=== PATIENT | male | born 1950 | race Caucasian/White ===

== ENCOUNTER 2017-03-05 10:08 | Emergency (ER) | payer MEDICARE ==
--- NOTE | 2017-03-05 12:23 | DIAGNOSTIC IMAGING REPORT ---
PROCEDURE: US ABDOMEN ULTRASOUND-LIMITED INDICATION: EPIGASTRIC ABDOMINAL PAIN TECHNIQUE: Leroy scale and color Doppler sonographic images of the abdomen were obtained without comparison. COMPARISON: None. FINDINGS: The liver is enlarged and demonstrates increased echogenicity. No mass or intrahepatic biliary dilatation. The gallbladder is without stones or sludge. There is a polyp that measures 3.7 mm. The wall is normal thickness measuring 2.1 mm No pericholecystic fluid or Leon sign. The extrahepatic common duct is normal measuring 3.3 mm The visualized pancreas is normal without ductal dilatation or peripancreatic fluid collection. The abdominal aorta is normal in its course and caliber. The retrohepatic inferior vena cava is patent. There is appropriate hepatopetal flow in the portal vein. The right kidney measures 11.9 cm in length. There is no perihepatic or perisplenic ascites. IMPRESSION: 1. Hepatomegaly, fatty liver.
--- NOTE | 2017-03-05 13:22 | DIAGNOSTIC IMAGING REPORT ---
PROCEDURE: CT ABDOMEN/PELVIS W/O CONTRAST INDICATION: Right-sided abdominal pain. TECHNIQUE: Noncontrast axial images were obtained of the entire abdomen and pelvis with sagittal and coronal reformations. COMPARISON: Abdominal ultrasound 03/05/2017. FINDINGS: ABDOMEN: Lung base are clear. Heart size is normal. Liver measures 21.9 cm in length. Gallbladder, pancreas, spleen and adrenal glands are normal. 5 cm left renal cyst. 2 mm mid left renal calcification. 3.5 mm right UVJ calculus with mild right hydroureteronephrosis. There is mild right perinephric and periureteral edema. Mild atherosclerosis of the aorta. PELVIS: Normal appendix. Mild diverticulosis. Enlarged prostate (5.1 cm). Calcified of pelvic lymph nodes. No free fluid. Mild degenerative changes of the spine. IMPRESSION: 1. 3.5 mm right UVJ calculus with mild right hydroureteronephrosis 2. Left renal cyst 3. 2 mm nonobstructing left renal calculus 4. Hepatomegaly 5. Results discussed with Dr. Cervantes All CT scans at this facility use dose modulation, iterative reconstruction, and/or weight-based dosing when appropriate to reduce radiation dose to as low as reasonably achievable.
--- NOTE | 2017-03-05 13:52 | ED NURSING NOTES ---
Clinical Report - Nurses [facility] [address] [place] [address] 03/05/2017 10:09 Patient: ANN ALEJANDRE TRIAGE Triage time 1017 PM. Acuity: LEVEL 3. Chief Complaint: ABDOMINAL PAIN and NAUSEA. Alert. No acute distress. SEPSIS SCREEN: Sepsis Screen. Negative (no infection suspected/documented). --10:34 Amy Haro R.N. 10:17 03/05/17. BP: 138/97 (regular adult cuff) taken on the left arm, via an automated monitor, while sitting. HR: 60. RR: 16. O2 saturation: 98% on room air. Temp: 98.4 F. Pain level now: 03/24. --10:34 Amy Haro R.N. Weight: 88.4 kg stated. Height/Length: 69 inches Per Patient. BMI: 28.8. --10:21 Amy Haro R.N. Medications Chlorothiazide Oral 500 mg, daily. FLUoxetine HCl Oral 30 mg , daily. Propranolol HCl Oral 60 mg, daily. --10:24 Amy Haro R.N. Aspirin Oral (Tablet Chewable 81 mg) 1 tablet. --10:24 Amy Haro R.N. Super B Complex/C Oral. --10:25 Amy Haro R.N. CoQ-10 Oral 100 mg , daily. --10:25 Amy Haro R.N. Fish Oil Oral (Capsule 1000 mg) 1 capsule. --10:26 Amy Haro R.N. Flax Seeds Oral. --10:26 Amy Haro R.N. Vitamin c Oral 1000 mg, daily. --10:26 Amy Haro R.N. Allergies No Known Drug Allergy. --10:24 Amy Haro R.N. Medication/allergy information source: the patient. --10:34 Amy Haro R.N. History Arrived by private vehicle. Historian: patient. Accompanied by family. Primary physician (Jose Figueroa). ( Pt states that after lifting a tub on Sunday started to have abdominal pain (does not believe it is related to the pain) on the right side which now has radiated to right flank area, constant, denies having diarrhea, vomiting or fevers. Does admit being nauseous at times. Does admit having burning sensation when he urinates.). This is a new problem. Symptoms are constant and still present (Sunday). He has had nausea and abdominal pain. No diarrhea, constipation or fever. 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 PAST MEDICAL HX: Immunizations: up-to-date. SOCIAL HX: Former smoker, end date 1996. No alcohol use or drug use. No recent travel. No infectious disease exposure. No known contact with a sick individual. ABUSE ASSESSMENT: No report of abuse. SELF HARM ASSESSMENT: A self harm assessment was performed. The patient answered "no" to the question "Do you have thoughts of harming or killing yourself?" and "Have you recently had thoughts about harming or killing others?". FALL RISK ASSESSMENT: Fall risk assessment completed. No fall risk identified. NUTRITIONAL RISK ASSESSMENT: The nutritional risk assessment revealed no deficiencies. FUNCTIONAL ASSESSMENT: Functional assessment: no impairments noted. LEARNING NEEDS ASSESSMENT: The learning needs assessment revealed no barriers. SKIN INTEGRITY ASSESSMENT: Skin integrity risk assessment completed. No skin integrity risk identified. --10:34 Amy Haro R.N. ( Pt does state that it is waking him up from sleep.). --10:35 Amy Haro R.N. PROBLEMS: H/A. Depression. Hypertension. --10:28 Amy Haro R.N. ADDITIONAL SURGERIES: Hernia Repair. Shoulder Surgery. --10:28 Amy Haro R.N. Interventions ID band on patient. --10:34 Amy Haro R.N. PHYSICAL ASSESSMENT Ambulatory to room. GENERAL / NEURO / PSYCH: Alert. Oriented X 4. HEENT: Mucous membranes are pink. RESPIRATORY: Respirations not labored. Breath sounds within normal limits. CVS: Capillary refill less than 2 seconds. GI / : The patient has had nausea. Abdomen soft and nontender. Bowel sounds within normal limits. No abdominal tenderness or distention, rebound tenderness or diarrhea. SKIN: Skin is warm and dry. --10:36 Amy Haro R.N. NURSING PROGRESS NOTES The initial plan of care for this patient has been created This plan of care was discussed with the patient. Patient gowned. Warming measures: blanket applied. Reassurance given. Two patient identifiers checked. Call light placed in reach. Side rails up. Bed placed in lowest position. Brakes of bed on. Patient ready for evaluation- chart flagged and ED physician notified. --10:35 Amy Haro R.N. EKG time: (1105). EKG was performed by a tech and shown to the ED physician. --11:06 Gabriela Alexander ER Tech1 10:57 03/05/2017 Site #1 started via IV in the left antecubital space with an 20g angiocath; one attempt. Blood drawn: rainbow set. Labeled in the presence of the patient and sent to the lab. --11:07 Amy Haro R.N. 11:07 03/05/2017 GI COCKTAIL WHITE (Simethicone) PO Oral Suspension 30 mL given. Allergies verified and confirmed 5 rights. --11:07 Amy Haro R.N. 11:07 03/05/2017 Started bag #1 1000 mL IV Fluids IV NS (Saline); at 1000 mL/hr over 1 hour(s) via site #1 via IV pump. Allergies verified and confirmed 5 rights. IV patency established. IV site checked: no pain, redness, or swelling. IV flushed thoroughly pre- and post-medication administration. --11:07 Amy Haro R.N. 12:03 03/05/2017 GI COCKTAIL WHITE PO Response: no adverse reaction. --12:13 Amy Haro R.N. 12:13 03/05/2017 IV Fluids IV NS Discontinued: bag #1 completed. Total amount infused: 1000 mL. IV patency established. IV site checked: no pain, redness, or swelling. IV flushed thoroughly. --12:13 Amy Haro R.N. 12:16 03/05/2017 Morphine IVP 4 mg given over 30 second(s) via site #1. Allergies verified, confirmed 5 rights and sedative warning given to the patient and patient's family. IV patency established. IV site checked: no pain, redness, or swelling. IV flushed thoroughly pre- and post-medication administration. IVP given by RN. --12:16 Amy Haro R.N. Pulse oximeter and NIBP monitor placed on patient. Reassurance given. Reassessment after fluids administered and medication administered. He has had no adverse reaction. ( US obtained, pt in pain, morphine given as ordered. Will monitor). GI / : The patient reports abdominal pain. Denies nausea, diarrhea or vomiting. SKIN: Skin color within normal limits. Two patient identifiers checked. Call light placed in reach. --12:19 Amy Haro R.N. 12:16 03/05/17. BP: 140/83 (regular adult cuff) taken on the left arm, via an automated monitor, while lying. HR: 57. RR: 18. O2 saturation: 100%. Temp: 98 F (oral). Pain level now: 8/10. --12:19 Amy Haro R.N. 12:37 03/05/2017 Dilaudid (HYDROmorphone HCl PF) IVP 1 mg given over 30 second(s) via site #1. Allergies verified, confirmed 5 rights and sedative warning given to the patient and patient's family. IV patency established. IV site checked: no pain, redness, or swelling. IV flushed thoroughly pre- and post-medication administration. IVP given by RN. --12:37 Amy Haro R.N. 12:37 03/05/2017 Morphine IVP Response: no adverse reaction symptoms are the same. The patient feels the same. --12:37 Amy Haro R.N. Reassurance given. Overall patient status is the same- he states feels better. ( Pt still "complaining of right flank pain" dilaudid given with good results pain levels at 3-4. NPO in place, waiting on CT results). GI / : The patient reports abdominal pain. Denies nausea, diarrhea or vomiting. Call light placed in reach. Side rails up. Patient waiting for CT results. --13:37 Amy Haro R.N. 13:35 03/05/17. BP: 128/79. HR: 54. RR: 16. O2 saturation: 95%. Pain level now: 12/22. --13:37 Amy Haro R.N. DISPOSITION / DISCHARGE 14:05 03/05/2017 Percocet (Oxycodone-Acetaminophen) PO 10/650 mg Tablets 2 tab given. Allergies verified, confirmed 5 rights and sedative warning given to the patient. --14:15 Amy Haro R.N. 14:08 03/05/2017 Site #1 removed upon discharge. Catheter intact. Manual pressure, pressure dressing, bandaid and bandage applied. --14:13 Amy Haro R.N. Departure time: 1410 PM. Condition at departure: improved and stable. The goals identified in the patient's plan of care were met. No learning barriers present. Discharge instructions provided and reviewed with the patient. Reviewed warnings (Stone passing instruction). Reviewed need for increased fluid intake. Patient and spouse verbalized understanding. Written instructions provided in [place]. No treatment instructions or referrals given to the patient. The patient was discharged by the physician. He was discharged home and accompanied by spouse. He left the Emergency Department ambulatory and via private vehicle. Spouse driving. FALL RISK ASSESSMENT: Fall risk assessment completed. No fall risk identified. --14:15 Amy Haro R.N. 14:00 03/05/17. BP: 125/58. HR: 78. RR: 15. O2 saturation: 100% on room air. Temp: 98.3 F (oral). Pain level now: 05/24. --14:15 Amy Haro R.N. Locked/Released at 03/05/2017 14:15 by Amy Haro R.N.
--- NOTE | 2017-03-05 13:52 | ED ORDER SUMMARY ---
..... Patient: ANN ALEJANDRE OrderSheet [facility] VisitID: [id number] [address] [place] [address] 66y, M Registration Date/Time: 03/05/2017 ORDER SHEET Weight: 88.4 kg (stated) Allergies: No Known Drug Allergy GENERAL ORDERS: US Abdomen Limited (No) Urgent (10:56 03/05/2017 Len Cardona) (Ack 10:58 LMuller) (12:13 EHassan R.N.) CBC w Diff Urgent (10:56 03/05/2017 Len Cardona) (Ack 10:58 LMuller) (10:59 LMuller) CMP Urgent (10:56 03/05/2017 Len Cardona) (Ack 10:58 LMuller) (10:59 LMuller) UA-Culture if indicated Urgent (10:56 03/05/2017 Len Cardona) (Ack 10:58 LMuller) (12:13 EHassan R.N.) PT with INR Urgent (10:56 03/05/2017 Len Cardona) (Ack 10:58 LMuller) (10:59 LMuller) Lipase Urgent (10:56 03/05/2017 Len Cardona) (Ack 10:58 LMuller) (10:59 LMuller) Troponin-I Urgent (10:56 03/05/2017 Len Cardona) (Ack 10:58 LMuller) (10:59 LMuller) EKG - ER Stat (10:56 03/05/2017 Len Cardona) (Ack 10:58 LMuller) (11:06 ALawrence ER Tech1) Pulse oximeter (10:56 03/05/2017 Len Cardona) (Ack 10:58 LMuller) (11:06 EHassan R.N.) CT Abd/Pel w Cont (No) (gfr borderline. okay for non-con if needed. ) Urgent (12:38 03/05/2017 Len Cardona) (Ack 12:40 LMuller) (Cancelled: Duplicate Order12:[address] CT Abd/Pel wo Cont Urgent (12:54 03/05/2017 Len Cardona) (Ack 12:57 LMuller) (13:03 LMuller) MEDICATION ORDERS: GI Cocktail WHITE PO 30 mL (NOW) (10:57 03/05/2017 Len Cardona) (11:07 EHassaforrest R.N.) Percocet PO 10/650 mg (HIGH ALERT MEDICATION, NOW) (14:06 03/05/2017 Len Cardona) (14:15 EHassaforrest R.N.) IV FLUIDS: IV NS : initial bolus none -, then 1000 mL/hr for X1 (NOW) (11:01 03/05/2017 Baltazar R.N. verbal order read back to Len Cardona) (11:07 EHassaforrest R.N.) Morphine IV 4 mg (HIGH ALERT MEDICATION, NOW) (12:12 03/05/2017 Len Cardona) (12:16 EHassaforrest R.N.) Dilaudid IV 1 mg (HIGH ALERT MEDICATION, NOW) (12:33 03/05/2017 Len Cardona) (12:37 EHassan R.N.) ORDER SHEET NOTES: [Electronically signed by Amy Haro R.N. (14:15 03/05/2017)] [Electronically signed by Bradly Cervantes Dr. (05:26 03/10/2017)] [Electronically locked/signed by Amy Haro R.N. (14:15 03/05/2017)]
--- NOTE | 2017-03-05 13:52 | ED ORDER SUMMARY ---
..... Patient: ANN ALEJANDRE OrderSheet [facility] VisitID: [id number] [address] [place] [address] 66y, M Registration Date/Time: 03/05/2017 ORDER SHEET Weight: 88.4 kg (stated) Allergies: No Known Drug Allergy GENERAL ORDERS: US Abdomen Limited (No) Urgent (10:56 03/05/2017 eLn Cardona) (Ack 10:58 LMuller) (12:13 EHassan R.N.) CBC w Diff Urgent (10:56 03/05/2017 Len Cardona) (Ack 10:58 LMuller) (10:59 LMuller) CMP Urgent (10:56 03/05/2017 Len Cardona) (Ack 10:58 LMuller) (10:59 LMuller) UA-Culture if indicated Urgent (10:56 03/05/2017 Len Cardona) (Ack 10:58 LMuller) (12:13 EHassan R.N.) PT with INR Urgent (10:56 03/05/2017 Len Cardona) (Ack 10:58 LMuller) (10:59 LMuller) Lipase Urgent (10:56 03/05/2017 Len Cardona) (Ack 10:58 LMuller) (10:59 LMuller) Troponin-I Urgent (10:56 03/05/2017 Len Cardona) (Ack 10:58 LMuller) (10:59 LMuller) EKG - ER Stat (10:56 03/05/2017 Len Cardona) (Ack 10:58 LMuller) (11:06 ALawrence ER Tech1) Pulse oximeter (10:56 03/05/2017 Len Cardona) (Ack 10:58 LMuller) (11:06 EHassan R.N.) CT Abd/Pel w Cont (No) (gfr borderline. okay for non-con if needed. ) Urgent (12:38 03/05/2017 Len Cardona) (Ack 12:40 LMuller) (Cancelled: Duplicate Order12:[address] CT Abd/Pel wo Cont Urgent (12:54 03/05/2017 Len Cardona) (Ack 12:57 LMuller) (13:03 LMuller) MEDICATION ORDERS: GI Cocktail WHITE PO 30 mL (NOW) (10:57 03/05/2017 Len Cardona) (11:07 EHassaforrest R.N.) Percocet PO 10/650 mg (HIGH ALERT MEDICATION, NOW) (14:06 03/05/2017 Len Cardona) (14:15 EHassaforrest R.N.) IV FLUIDS: IV NS : initial bolus none -, then 1000 mL/hr for X1 (NOW) (11:01 03/05/2017 Baltazar R.N. verbal order read back to Len Cardona) (11:07 EHassaforrest R.N.) Morphine IV 4 mg (HIGH ALERT MEDICATION, NOW) (12:12 03/05/2017 Len Cardona) (12:16 EHassaforrest R.N.) Dilaudid IV 1 mg (HIGH ALERT MEDICATION, NOW) (12:33 03/05/2017 Len Cardona) (12:37 EHassan R.N.) ORDER SHEET NOTES: [Electronically signed by Amy Haro R.N. (14:15 03/05/2017)] [Electronically signed by Bradly Cervantes Dr. (05:26 03/10/2017)] [Electronically locked/signed by Amy Haro R.N. (14:15 03/05/2017)]
--- NOTE | 2017-03-05 13:52 | ED CLINICAL REPORT ---
Clinical Report - Physicians/Mid Levels [facility] [address] [place] [address] 03/05/2017 10:09 Patient: ANN ALEJANDRE Time Seen: 1040. Arrived- By private vehicle. Historian- patient. HISTORY OF PRESENT ILLNESS Chief Complaint: ABDOMINAL PAIN. This started past 2 - 3 days and is still present and worsening. It was abrupt in onset and has been intermittent and waxing/waning but is not gone now. At its maximum, severity described as moderate. When seen in the E.D., severity described as moderate. It is described as "pain". No radiation. It is described as located in the right upper quadrant. No nausea, loss of appetite, vomiting or diarrhea. No additional abdominal pain. No recent travel. Similar symptoms previously: None. Recent medical care: Not recently seen/assessed. REVIEW OF SYSTEMS No black stools, hematemesis, bloody stools or fever. All systems otherwise negative, except as recorded above. PAST HISTORY See nurses notes. SOCIAL HISTORY Never smoker. No alcohol use or drug use. No recent travel. Is a local resident. FAMILY HISTORY No family history of gall bladder problems. ADDITIONAL NOTES The nursing notes have been reviewed. PHYSICAL EXAM Vital Signs: 03/05/2017 10:17 BP: 138/97. HR: 60. RR: 16. O2 saturation: 98%. Temp: 98.4 F. Pain level now: 6/10. Blood pressure normal. Oxygen saturation normal. Appearance: Alert. Oriented X3. No acute distress. Eyes: Pupils equal, round and reactive to light. Eyes normal inspection. ENT: Ears normal. Nose normal. Pharynx normal. Neck: Normal inspection. Neck supple. CVS: Normal heart rate and rhythm. Heart sounds normal. Pulses normal. Respiratory: No respiratory distress. Breath sounds normal. Chest nontender. Abdomen: Soft. Bowel sounds normal. (Mild right upper quadrant tenderness. Negative Leon's. No tenderness at McBurney's. No rebound or guarding. No masses). Back: No CVA tenderness. Skin: Skin warm and dry. Normal skin color. No rash. Normal skin turgor. Extremities: Extremities exhibit normal ROM. No lower extremity edema. LABS, X-RAYS, AND EKG Abdominal CT: PROCEDURE: CT ABDOMEN/PELVIS W/O CONTRAST INDICATION: Right-sided abdominal pain. TECHNIQUE: Noncontrast axial images were obtained of the entire abdomen and pelvis with sagittal and coronal reformations. COMPARISON: Abdominal ultrasound 03/05/2017. FINDINGS: ABDOMEN: Lung base are clear. Heart size is normal. Liver measures 21.9 cm in length. Gallbladder, pancreas, spleen and adrenal glands are normal. 5 cm left renal cyst. 2 mm mid left renal calcification. 3.5 mm right UVJ calculus with mild right hydroureteronephrosis. There is mild right perinephric and periureteral edema. Mild atherosclerosis of the aorta. PELVIS: Normal appendix. Mild diverticulosis. Enlarged prostate (5.1 cm). Calcified of pelvic lymph nodes. No free fluid. Mild degenerative changes of the spine. IMPRESSION: 1. 3.5 mm right UVJ calculus with mild right hydroureteronephrosis 2. Left renal cyst 3. 2 mm nonobstructing left renal calculus 4. Hepatomegaly. Study type: abdomen and pelvis. Abdominal CT performed without contrast. The study was independently viewed by me and interpreted by the radiologist. The study was discussed with the radiologist (via phone and pacs). Abdominal Sonogram: (PROCEDURE: US ABDOMEN ULTRASOUND-LIMITED INDICATION: EPIGASTRIC ABDOMINAL PAIN TECHNIQUE: Leroy scale and color Doppler sonographic images of the abdomen were obtained without comparison. COMPARISON: None. FINDINGS: The liver is enlarged and demonstrates increased echogenicity. No mass or intrahepatic biliary dilatation. The gallbladder is without stones or sludge. There is a polyp that measures 3.7 mm. The wall is normal thickness measuring 2.1 mm No pericholecystic fluid or Leon sign. The extrahepatic common duct is normal measuring 3.3 mm The visualized pancreas is normal without ductal dilatation or peripancreatic fluid collection. The abdominal aorta is normal in its course and caliber. The retrohepatic inferior vena cava is patent. There is appropriate hepatopetal flow in the portal vein. The right kidney measures 11.9 cm in length. There is no perihepatic or perisplenic ascites. IMPRESSION: 1. Hepatomegaly, fatty liver.). The study was independently viewed by me and interpreted by the radiologist. The study was discussed with the radiologist (via pacs). Laboratory Tests: CBC w Diff: (KEVIN: 03/05/2017 10:40) ( [facility] 03/05/2017 11:11) Final results Test Result Flag Units (Reference) WHITE BLOOD COUNT 15.2 H K/uL (4.5-11.5) RED BLOOD COUNT 4.15 L M/uL (4.50-5.90) HEMOGLOBIN 12.9 L gm/dL (13.5-17.5) HEMATOCRIT 37.8 L % (41.0-53.0) MEAN CELL VOLUME 91 fL (80-100) MEAN CORPUSCULAR HGB 31 pg (26-34) MEAN CORPUSCULAR HGB CONC 34 g/dL (31-37) RED CELL DISTRIBUTION WIDTH 13.5 % (11.6-14.8) PLATELET COUNT 146 L K/uL (150-400) NEUTROPHIL % 80.1 H % (50-75) LYMPH % 10.9 L % (25-40) MONO % 8.2 % (3-14) EOSINOPHIL % 0.6 % (0-4) BASOPHIL % 0.2 % (0-2) PT with INR: (KEVIN: 03/05/2017 10:40) ( [facility] 03/05/2017 11:14) Final results Test Result Flag Units (Reference) INR 1.1 (0.8-1.2) Low Intensity Therapy: INR 1.5-2.0 PT range 18.5-23.1Mod.Intensity Therapy: INR 2.0-3.0 PT range 23.1-31.5High Intensity Therapy: INR 2.5-3.5 PT range 27.4-35.5High Intensity Therapy 2: INR 3.0-4.0 PT range 31.5-39.3 CMP: (KEVIN: 03/05/2017 10:40) ( [facility] 03/05/2017 11:40) Final results Test Result Flag Units (Reference) GLUCOSE 186 H mg/dL (70-110) BUN 33 H mg/dL (7-18) CREATININE 2.0 H mg/dL (0.6-1.3) Estimated GFR 35.71 mL/min Estimated GFR- 43.28 mL/min Note: Persistent reduction over 3 months in eGFR<60 mL/min/1.73 m2 defines CKD. Patients with eGFR values>=60 mL/min/1.73 m2 may also have CKD if evidence ofpersistent proteinuria. Additional information may be foundat [email or web address].org. SODIUM 137 mmol/L (136-145) POTASSIUM 3.0 L mmol/L (3.5-5.1) CHLORIDE 102 mmol/L (98-107) CARBON DIOXIDE 26 mmol/L (21-32) CALCIUM 8.7 mg/dL (8.5-10.1) TOTAL PROTEIN 6.9 g/dL (6.4-8.2) ALBUMIN 3.6 g/dL (3.3-5.0) BILIRUBIN, TOTAL 0.7 mg/dL (0.0-1.0) ALKALINE PHOSPHATASE 50 U/L (46-116) AST (SGOT) 24 U/L (15-37) ALT (SGPT) 38 U/L (12-78) LIPASE 120 U/L (73-393) TROPONIN I <0.05 L ng/mL (0.00-1.5) TROPONIN REFERENCE RANGE:<0.1 NEGATIVE0.1-1.5 INDETERMINANT>1.5 POSITIVE . PROGRESS AND PROCEDURES Course of Care: The patient is a pleasant 66-year-old male presented for a vaginal right upper quadrant abdominal pain. At this time differential diagnosis includes biliary colic versus peritonitis versus hepatitis versus gastritis. Patient will be evaluated with ultrasound of the right upper quadrant as well as laboratory studies. Patient is agreeable to the treatment plan. Pain medication has been offered. Patient's workup was remarkable for the findings above. White blood cell count is noted to be 15.2. Patient's ultrasound shows a polyp in the gallbladder however patient has not any stones. During patient's evaluation, his pain had worsened. Because of the worsening pain had discussion with the patient in regards to a CT scan of the abdomen and pelvis. Patient is agreeable to the treatment plan with a CT scan. Patient could have a renal calculi or bowel obstruction given the change in pain. CT scan shows patient to have a kidney stone. This is likely the cause for the patient's pain. Patient otherwise does not have a surgical abdomen. Patient with elevation in creatinine. Unable to provide patient with Toradol because of the patient's elevated creatinine. because of the patient's findings in the emergency department, patient will be referred to urology for further management and follow-up. Pain has been controlled while here in the emergency department. Patient had requested one more dose of pain medication prior to departure from the emergency department. This has been provided. Had a discussion the patient in regards to his workup here in the emergency department including diagnosis, home care, follow-up, and return precautions. All questions have been answered. The patient expressed understanding of these instructions and was agreeable to them. Disposition: Discharged. Condition: good. CLINICAL IMPRESSION Acute right upper quadrant abdominal pain of unknown cause. 03/05/2017 13:35 BP: 128/79. HR: 54. RR: 16. O2 saturation: 95%. Pain level now: 3/10. Blood pressure normal. Oxygen saturation normal. Right renal colic in the right ureter with a single calculus. incidental gallbladder polyp acute kidney injury. INSTRUCTIONS Warnings: GENERAL WARNINGS: Return or contact your physician immediately if your condition worsens or changes unexpectedly, if not improving as expected, or if other problems arise. SPECIFICALLY, return if you develop pain, fever, vomiting, the inability to keep fluids down, blood in vomitus, blood in diarrhea, fainting or lightheadedness. Your Current Medications: CONTINUE TAKING THE FOLLOWING MEDICATIONS: Aspirin Oral : Tablet Chewable 81 mg, 1 tablet. CoQ-10 Oral : 100 mg daily. Fish Oil Oral : Capsule 1000 mg, 1 capsule. Flax Seeds Oral. FLUoxetine HCl Oral : 30 mg daily. Propranolol HCl Oral : 60 mg daily. Super B Complex/C Oral. Vitamin c Oral : 1000 mg daily. CONTINUE TAKING THE FOLLOWING MEDICATIONS UNTIL YOU CHECK WITH YOUR PHYSICIAN: Chlorothiazide Oral : 500 mg daily. Prescription Medications: Zofran (orally disintegrating tablets) 4 mg: take 1 orally every 8 hours as needed for nausea and vomiting. Dispense ten (10). No refill. Substitution is permissible. Percocet 5 mg/325 mg: take 1-2 tablets orally every 6 hours as needed for pain. Dispense twenty-five (25). No refill. Substitution is permissible. Follow-up: Return to the emergency department as needed. Follow up with a surgeon in three days. Reason for referral: recheck gallbladder polyp found on ultrasound. Summary of care provided to patient via paper. Follow up with your doctor in three days. Reason for referral: recheck today's concerns. Summary of care provided to patient via paper. Screening today revealed the patient's blood pressure to be in the normal range. The patient should follow up with a primary care provider for blood pressure management. Understanding of the discharge instructions verbalized by patient. Follow-up with: Rubén Segal MD, Urology, , [address] [facility] , [facility], [address] Follow up in one day. Reason for referral: recheck today's concerns. Summary of care provided to patient via paper. (Electronically signed by Bradly Cervantes Dr. 03/10/2017 5:26)
--- NOTE | 2017-03-10 05:26 | ED MAR SUMMARY ---
..... Medication Administration Record [facility] [address] [place] [address] Patient: ANN ALEJANDRE Visit ID: [id number] 66y, M Weight: 88.4 kg Height/Length: 69 in BMI: 28.8 ALLERGIES: No Known Drug Allergy Given 11:07 03/05/2017 Amy Haro R.N. Medication Administered: GI COCKTAIL WHITE [PO] (SIMETHICONE), Dose: 30 mL Oral Suspension PO. Medication Ordered: GI Cocktail WHITE PO 30 mL (NOW). Start 11:07 03/05/2017 Amy Haro R.N., Stop 12:13 03/05/2017 Amy Haro R.N. Medication Administered: IV NS (SALINE), Dose: IV Fluids over 1 hour(s), Rate: 1000 mL/hr, Dispensed: 1000 mL bag, Site: #1 left AC. Medication Ordered: IV NS : initial bolus none -, then 1000 mL/hr for X1 (NOW). Given 12:16 03/05/2017 Amy Haro R.N. Medication Administered: MORPHINE [IVP], Dose: 4 mg IVP over 30 second(s), Site: #1 left AC. Medication Ordered: Morphine IV 4 mg (HIGH ALERT MEDICATION, NOW). Given 12:37 03/05/2017 Amy Haro R.N. Medication Administered: DILAUDID [IVP] (HYDROMORPHONE HCL PF), Dose: 1 mg IVP over 30 second(s), Site: #1 left AC. Medication Ordered: Dilaudid IV 1 mg (HIGH ALERT MEDICATION, NOW). Given 14:05 03/05/2017 Amy Haro R.N. Medication Administered: PERCOCET [PO] (OXYCODONE-ACETAMINOPHEN), Dose: 2 tab 10/650 mg Tablets PO. Medication Ordered: Percocet PO 10/650 mg (HIGH ALERT MEDICATION, NOW).
--- NOTE | 2017-03-10 05:26 | ED MED RECONCILIATION SUMMARY ---
Patient: ANN ALEJANDRE Medication Reconciliation Report [facility] VisitID: [id number] [address] [place] [address] 66y, M Registration Date/Time: 03/05/2017 Weight: 88.4 kg Height/Length: 69 in. BMI: 28.8 ALLERGIES: No Known Drug Allergy The patient's Home Medications are listed below: CONTINUE TAKING THE FOLLOWING MEDICATIONS: Aspirin Oral (81 mg) 1 tablet CoQ-10 Oral 100 mg , daily Fish Oil Oral (1000 mg) 1 capsule Flax Seeds Oral FLUoxetine HCl Oral 30 mg , daily Propranolol HCl Oral 60 mg, daily Super B Complex/C Oral Vitamin c Oral 1000 mg, daily CONTINUE TAKING THE FOLLOWING MEDICATIONS UNTIL YOU CHECK WITH YOUR PHYSICIAN: Chlorothiazide Oral 500 mg, daily The source(s) of the original Home Medication information: patient The following Medications were given to the patient in the Emergency Department: GI COCKTAIL WHITE [PO] PO 30 mL, administered: 03/05/2017 11:07:00 AM IV NS IV Fluids bolus 0, then 1000 mL/hr, administered: 03/05/2017 11:07:00 AM Morphine [IVP] IVP 4 mg, administered: 03/05/2017 12:16:00 PM Dilaudid [IVP] IVP 1 mg, administered: 03/05/2017 12:37:00 PM Percocet [PO] PO 2 tab, administered: 03/05/2017 2:05:00 PM The following Medications were prescribed to the patient: Zofran (orally disintegrating tablets) 4 mg: take 1 orally every 8 hours as needed for nausea and vomiting. Dispense ten (10). No refill. Substitution is permissible. -- Bradly Cervantes Dr. Percocet 5 mg/325 mg: take 1-2 tablets orally every 6 hours as needed for pain. Dispense twenty-five (25). No refill. Substitution is permissible. -- Bradly Cervantes Dr.
--- NOTE | 2017-03-10 05:26 | ED MED RECONCILIATION SUMMARY ---
Patient: ANN ALEJANDRE Medication Reconciliation Report [facility] VisitID: [id number] [address] [place] [address] 66y, M Registration Date/Time: 03/05/2017 Weight: 88.4 kg Height/Length: 69 in. BMI: 28.8 ALLERGIES: No Known Drug Allergy The patient's Home Medications are listed below: CONTINUE TAKING THE FOLLOWING MEDICATIONS: Aspirin Oral (81 mg) 1 tablet CoQ-10 Oral 100 mg , daily Fish Oil Oral (1000 mg) 1 capsule Flax Seeds Oral FLUoxetine HCl Oral 30 mg , daily Propranolol HCl Oral 60 mg, daily Super B Complex/C Oral Vitamin c Oral 1000 mg, daily CONTINUE TAKING THE FOLLOWING MEDICATIONS UNTIL YOU CHECK WITH YOUR PHYSICIAN: Chlorothiazide Oral 500 mg, daily The source(s) of the original Home Medication information: patient The following Medications were given to the patient in the Emergency Department: GI COCKTAIL WHITE [PO] PO 30 mL, administered: 03/05/2017 11:07:00 AM IV NS IV Fluids bolus 0, then 1000 mL/hr, administered: 03/05/2017 11:07:00 AM Morphine [IVP] IVP 4 mg, administered: 03/05/2017 12:16:00 PM Dilaudid [IVP] IVP 1 mg, administered: 03/05/2017 12:37:00 PM Percocet [PO] PO 2 tab, administered: 03/05/2017 2:05:00 PM The following Medications were prescribed to the patient: Zofran (orally disintegrating tablets) 4 mg: take 1 orally every 8 hours as needed for nausea and vomiting. Dispense ten (10). No refill. Substitution is permissible. -- Bradly Cervantes Dr. Percocet 5 mg/325 mg: take 1-2 tablets orally every 6 hours as needed for pain. Dispense twenty-five (25). No refill. Substitution is permissible. -- Bradly Cervantes Dr.
--- NOTE | 2017-03-10 05:26 | ED DISCHARGE INSTRUCTIONS ---
Patient: ANN ALEJANDRE General Instructions [facility] VisitID: [id number] [address] [place] [address] 66y, M Registration Date/Time: 03/05/2017 Acute right upper quadrant abdominal pain of unknown cause. 03/05/2017 13:35 BP: 128/79. HR: 54. RR: 16. O2 saturation: 95%. Pain level now: 3/10. Blood pressure normal. Oxygen saturation normal. Right renal colic in the right ureter with a single calculus. incidental gallbladder polyp acute kidney injury. INSTRUCTIONS Warnings: GENERAL WARNINGS: Return or contact your physician immediately if your condition worsens or changes unexpectedly, if not improving as expected, or if other problems arise. SPECIFICALLY, return if you develop pain, fever, vomiting, the inability to keep fluids down, blood in vomitus, blood in diarrhea, fainting or lightheadedness. Your Current Medications: CONTINUE TAKING THE FOLLOWING MEDICATIONS: Aspirin Oral : Tablet Chewable 81 mg, 1 tablet. CoQ-10 Oral : 100 mg daily. Fish Oil Oral : Capsule 1000 mg, 1 capsule. Flax Seeds Oral. FLUoxetine HCl Oral : 30 mg daily. Propranolol HCl Oral : 60 mg daily. Super B Complex/C Oral. Vitamin c Oral : 1000 mg daily. CONTINUE TAKING THE FOLLOWING MEDICATIONS UNTIL YOU CHECK WITH YOUR PHYSICIAN: Chlorothiazide Oral : 500 mg daily. Prescription Medications: Zofran (orally disintegrating tablets) 4 mg: take 1 orally every 8 hours as needed for nausea and vomiting. Dispense ten (10). No refill. Substitution is permissible. Percocet 5 mg/325 mg: take 1-2 tablets orally every 6 hours as needed for pain. Dispense twenty-five (25). No refill. Substitution is permissible. Follow-up: Return to the emergency department as needed. Follow up with a surgeon in three days. Reason for referral: recheck gallbladder polyp found on ultrasound. Summary of care provided to patient via paper. Follow up with your doctor in three days. Reason for referral: recheck today's concerns. Summary of care provided to patient via paper. Screening today revealed the patient's blood pressure to be in the normal range. The patient should follow up with a primary care provider for blood pressure management. Understanding of the discharge instructions verbalized by patient. Follow-up with: Rubén Segal MD, Urology, , [address], , [place], [address] Follow up in one day. Reason for referral: recheck today's concerns. Summary of care provided to patient via paper. ADDITIONAL INFORMATION Abdominal Pain,Uncertain Cause [Male] Based on your visit today, the exact cause of your abdominalpain is not clear. Your exam and tests do not indicate a dangerous cause at this time. However, the signs of a serious problem may take more time to appear. Although your evaluation was reassuring today, sometimes early in the course of many conditions, exam and lab tests can appear normal. Therefore, it is important for you to watch for any new symptoms or worsening of your condition. Causes It may not be obvious what caused your symptoms. Pay attention to things that do seem to make your symptoms worse or better and discuss this with your doctor when you follow up. Diagnosis The evaluation of abdominal pain in the emergency department may onlyrequire an exam by the doctor or it may include blood, urine or imaging studies, depending on many factors. Sometimes exams and tests can identify a cause but in many cases, a clear cause is not found. Further testing at follow up visits may help to suggest a clear diagnosis. Home Care Rest as much as possible until your next exam. Try to avoid any medications (unless otherwise directed by your doctor), foods, activities, or other factors that you may have contributed to your symptoms. Try to eat foods that you know that you have tolerated well in the past. Certain diets may be recommended for some conditions that cause abdominal pain. However, since the cause of your symptoms may not be clear, discuss your diet more with your primary care provider or specialist for further recommendations. Eating several small meals per day as opposed to 2 or 3 larger meals may help. Monitor closely for anything that may make your symptoms worse or better. Pay close attention to symptoms below that may indicate worsening of your condition. Follow Up and Precautions See your doctoras instructed or sooneror if your symptoms are not improving.In some cases, you may need more testing. When to Seek Medical Attention Contact your doctor or see medical attention ifany of the following occur: Pain is becoming worse You are unable to take your medications due to excessive vomiting Swelling of the abdomen Fever of 100.4F (38C) or higher, or as directed by your health care provider Blood in vomit or bowel movements (dark red or black color) Jaundice (yellow color of eyes and skin) New onset of weakness, dizziness or fainting New onset of chest, arm, back, neck or jaw pain Kidney Stone, Passed A kidney stone begins as tiny crystals that form inside the kidney where urine is made. Most kidney stones enlarge to about 1/8" to 1/4" in size before leaving the kidney and moving toward the bladder.While the stone remains in the kidney, it causes no symptoms. The sharp cramping pain and nausea/vomiting that you hadwas due to the stone moving through the ureter (the narrow tube joining the kidney to the bladder).Once the stone reaches your bladder, the pain stops. Home Care: Drink plenty of fluids. This increases urine flow and reduces the chance that a new stone will form. Healthy adults (no heart/liver/kidney disease) who have had a kidney stone should drink 2-3 quarts (8-12 eight-ounce glasses) of fluids per day. Most of this should be water. The goal is to produce 1.5 to 2 quarts of almost colorless urine per 24 hours. Unless another NSAID (non-steroidal anti-inflammatory drug) was prescribed, you may take ibuprofen (Motrin, Advil) or naproxen (Aleve) in addition to any narcotic pain medicine prescribed by your doctor for recurrent pain. [NOTE: If you have chronic liver or kidney disease or ever had a stomach ulcer or GI bleeding, talk with your doctor before using these medicines.] Collecting the stone: If you were given a strainer, urinate into a jar then pour the urine through the strainer and into the toilet. Continue this for 24-hours after your pain stops. Save any stone that you find in the strainer and bring it to your doctor for analysis. If you do not collect a stone, a 24 hour urine specimen can be obtained at a later time by your doctor, to determine the cause of your stone. Prevention: Each year, there is a 5-10% chance that a new stone will form (50% chance over the next 10 years).The risk is highest if you have a family history of kidney stones or have certain chronic illnesses such as diabetes.However, there are lifestyle and dietary changes that you can follow to reduce the risk of a recurrence. Most kidney stones are made of calcium. The following is advice for preventing a recurrence of calcium stones.If you dont know the type of stone you have, follow this advice, until the cause of your stone is determined. Things That Help: The most important thing you can do is to drink plenty of fluids each day, as described above (#1). Certain foods such as wheat, rice, rye, barley and beans contain phytate, a compound may lower the risk of recurrence of any type of stone. Increase the amounts of fruits and vegetables (especially those high in potassium). Things To Limit Or Avoid: Calcium supplements may increase your risk of calcium stones. If you are taking these, talk to your doctor about the risks and benefits of continuing this treatment.[Note: There is no need to limit the amount of calcium in the foods you eat (such as milk and dairy products)]. Limit salt intake to 2-3 grams (1 to 1.5 teaspoons) per day. Use limited amounts when cooking, and dont add salt at the table. Limit spinach, rhubarb, peanuts, cashews and almonds, grapefruit and grapefruit juice. Reducing the amount of animal meat in your diet may lower your risk. Women should avoid excess sugar (sucrose) and fructose (sweetener in many soft drinks) in their diet. If you take vitamin C as a supplement, do not take more than 1,000 mg per day. Follow Up with your doctor or as advised by our staff. Even if you don t collect the kidney stone, it is possible to analyze a 24 hour urine collection for the cause of this stone. Follow up with your doctor for this. [NOTE: If you had an x-ray or CT scan, it will be reviewed by a specialist. You will be notified of any new findings that may affect your care.] Get Prompt Medical Attention if any of the following occur: Severe pain that returns and not relieved by pain medicines Repeated vomiting or unable to keep down fluids Weakness, dizziness or fainting Fever of 100.4F (38C) or higher, or as directed by your healthcare provider Blood clotsin urine Unable to pass urine for 8 hours or increasing bladder pressure Ondansetron Oral disintegrating tablet What is this medicine? ONDANSETRON (on CHESTER se vincent) is used to treat nausea and vomiting caused by chemotherapy. It is also used to prevent or treat nausea and vomiting after surgery. How should I use this medicine? These tablets are made to dissolve in the mouth. Do not try to push the tablet through the foil backing. With dry hands, peel away the foil backing and gently remove the tablet. Place the tablet in the mouth and allow it to dissolve, then swallow. While you may take these tablets with water, it is not necessary to do so. Talk to your fine grade bulldozer operator regarding the use of this medicine in children. Special care may be needed. What side effects may I notice from receiving this medicine? Side effects that you should report to your doctor or health child care director as soon as possible: allergic reactions like skin rash, itching or hives, swelling of the face, lips, or tongue breathing problems dizziness fast or irregular heartbeat feeling faint or lightheaded, falls fever and chills swelling of the hands and feet tightness in the chest Side effects that usually do not require medical attention (report to your doctor or health child care director if they continue or are bothersome): constipation or diarrhea headache What may interact with this medicine? Do not take this medicine with any of the following medications: -apomorphine -cisapride -dofetilide -dronedarone -pimozide -thioridazine -ziprasidone This medicine may also interact with the following medications: -carbamazepine -phenytoin -rifampicin -tramadol -other medicines that prolong the QT interval (cause an abnormal heart rhythm) What if I miss a dose? If you miss a dose, take it as soon as you can. If it is almost time for your next dose, take only that dose. Do not take double or extra doses. Where should I keep my medicine? Keep out of the reach of children. Store between 2 and 30 degrees C (36 and 86 degrees F). Throw away any unused medicine after the expiration date. What should I tell my health care provider before I take this medicine? They need to know if you have any of these conditions: heart disease history of irregular heartbeat liver disease low levels of magnesium or potassium in the blood an unusual or allergic reaction to ondansetron, granisetron, other medicines, foods, dyes, or preservatives or trying to get breast-feeding What should I watch for while using this medicine? Check with your doctor or health child care director as soon as you can if you have any sign of an allergic reaction. Oxycodone Hydrochloride, Acetaminophen Oral tablet What is this medicine? ACETAMINOPHEN; OXYCODONE (a set a CRISTÓBAL mary grace fen; ox i KOE done) is a pain reliever. It is used to treat mild to moderate pain. How should I use this medicine? Take this medicine by mouth with a full glass of water. Follow the directions on the prescription label. Take your medicine at regular intervals. Do not take your medicine more often than directed. Talk to your fine grade bulldozer operator regarding the use of this medicine in children. Special care may be needed. Patients over 65 years old may have a stronger reaction and need a smaller dose. What side effects may I notice from receiving this medicine? Side effects that you should report to your doctor or health child care director as soon as possible: allergic reactions like skin rash, itching or hives, swelling of the face, lips, or tongue breathing difficulties, wheezing confusion light headedness or fainting spells severe stomach pain yellowing of the skin or the whites of the eyes Side effects that usually do not require medical attention (report to your doctor or health child care director if they continue or are bothersome): dizziness drowsiness nausea vomiting What may interact with this medicine? alcohol antihistamines barbiturates like amobarbital, butalbital, butabarbital, methohexital, pentobarbital, phenobarbital, thiopental, and secobarbital benztropine drugs for bladder problems like solifenacin, trospium, oxybutynin, tolterodine, hyoscyamine, and methscopolamine drugs for breathing problems like ipratropium and tiotropium drugs for certain stomach or intestine problems like propantheline, homatropine methylbromide, glycopyrrolate, atropine, belladonna, and dicyclomine general anesthetics like etomidate, ketamine, nitrous oxide, propofol, desflurane, enflurane, halothane, isoflurane, and sevoflurane medicines for depression, anxiety, or psychotic disturbances medicines for sleep muscle relaxants naltrexone narcotic medicines (opiates) for pain phenothiazines like perphenazine, thioridazine, chlorpromazine, mesoridazine, fluphenazine, prochlorperazine, promazine, and trifluoperazine scopolamine tramadol trihexyphenidyl What if I miss a dose? If you miss a dose, take it as soon as you can. If it is almost time for your next dose, take only that dose. Do not take double or extra doses. Where should I keep my medicine? Keep out of the reach of children. This medicine can be abused. Keep your medicine in a safe place to protect it from theft. Do not share this medicine with anyone. Selling or giving away this medicine is dangerous and against the law. Store at room temperature between 20 and 25 degrees C (68 and 77 degrees F). Keep container tightly closed. Protect from light. This medicine may cause accidental overdose and if it is taken by other adults, children, or pets. Flush any unused medicine down the toilet to reduce the chance of harm. Do not use the medicine after the expiration date. What should I tell my health care provider before I take this medicine? They need to know if you have any of these conditions: brain tumor Crohn's disease, inflammatory bowel disease, or ulcerative colitis drink more than 3 alcohol containing drinks per day drug abuse or addiction head injury heart or circulation problems kidney disease or problems going to the bathroom liver disease lung disease, asthma, or breathing problems an unusual or allergic reaction to acetaminophen, oxycodone, other opioid analgesics, other medicines, foods, dyes, or preservatives or trying to get breast-feeding What should I watch for while using this medicine? Tell your doctor or health child care director if your pain does not go away, if it gets worse, or if you have new or a different type of pain. You may develop tolerance to the medicine. Tolerance means that you will need a higher dose of the medication for pain relief. Tolerance is normal and is expected if you take this medicine for a long time. Do not suddenly stop taking your medicine because you may develop a severe reaction. Your body becomes used to the medicine. This does NOT mean you are addicted. Addiction is a behavior related to getting and using a drug for a non-medical reason. If you have pain, you have a medical reason to take pain medicine. Your doctor will tell you how much medicine to take. If your doctor wants you to stop the medicine, the dose will be slowly lowered over time to avoid any side effects. You may get drowsy or dizzy. Do not drive, use machinery, or do anything that needs mental alertness until you know how this medicine affects you. Do not stand or sit up quickly, especially if you are an older patient. This reduces the risk of dizzy or fainting spells. Alcohol may interfere with the effect of this medicine. Avoid alcoholic drinks. There are different types of narcotic medicines (opiates) for pain. If you take more than one type at the same time, you may have more side effects. Give your health care provider a list of all medicines you use. Your doctor will tell you how much medicine to take. Do not take more medicine than directed. Call emergency for help if you have problems breathing. The medicine will cause constipation. Try to have a bowel movement at least every 2 to 3 days. If you do not have a bowel movement for 3 days, call your doctor or health child care director. Do not take Tylenol (acetaminophen) or medicines that have acetaminophen with this medicine. Too much acetaminophen can be very dangerous. Many nonprescription medicines contain acetaminophen. Always read the labels carefully to avoid taking more acetaminophen. You have been given the following additional information: Abdominal Pain, Unknown Cause, (Male) Kidney Stone, Passed Ondansetron Oral disintegrating tablet Oxycodone Hydrochloride, Acetaminophen Oral tablet (Electronically signed by Bradly Cervantes Dr. 03/10/2017 5:26)
--- NOTE | 2017-03-10 05:26 | ED MAR SUMMARY ---
..... Medication Administration Record [facility] [address] [place] [address] Patient: ANN ALEJANDRE Visit ID: [id number] 66y, M Weight: 88.4 kg Height/Length: 69 in BMI: 28.8 ALLERGIES: No Known Drug Allergy Given 11:07 03/05/2017 Amy Haro R.N. Medication Administered: GI COCKTAIL WHITE [PO] (SIMETHICONE), Dose: 30 mL Oral Suspension PO. Medication Ordered: GI Cocktail WHITE PO 30 mL (NOW). Start 11:07 03/05/2017 Amy Haro R.N., Stop 12:13 03/05/2017 Amy Haro R.N. Medication Administered: IV NS (SALINE), Dose: IV Fluids over 1 hour(s), Rate: 1000 mL/hr, Dispensed: 1000 mL bag, Site: #1 left AC. Medication Ordered: IV NS : initial bolus none -, then 1000 mL/hr for X1 (NOW). Given 12:16 03/05/2017 Amy Haro R.N. Medication Administered: MORPHINE [IVP], Dose: 4 mg IVP over 30 second(s), Site: #1 left AC. Medication Ordered: Morphine IV 4 mg (HIGH ALERT MEDICATION, NOW). Given 12:37 03/05/2017 Amy Haro R.N. Medication Administered: DILAUDID [IVP] (HYDROMORPHONE HCL PF), Dose: 1 mg IVP over 30 second(s), Site: #1 left AC. Medication Ordered: Dilaudid IV 1 mg (HIGH ALERT MEDICATION, NOW). Given 14:05 03/05/2017 Amy Haro R.N. Medication Administered: PERCOCET [PO] (OXYCODONE-ACETAMINOPHEN), Dose: 2 tab 10/650 mg Tablets PO. Medication Ordered: Percocet PO 10/650 mg (HIGH ALERT MEDICATION, NOW).
== END 2017-03-05 14:10 | disposition home or self-care (01) ==
LOC: ED SRH 10:08
DX: R10.11 Right upper quadrant pain (principal); N20.2 Calculus of kidney with calculus of ureter; K82.4 Cholesterolosis of gallbladder; S37.001A Unspecified injury of right kidney, initial encounter; X58.XXXA Exposure to other specified factors, initial encounter; Y93.9 Activity, unspecified; Y99.9 Unspecified external cause status; Y92.9 Unspecified place or not applicable
CPT/HCPCS: 90004; 90100; 90616; 92235; 94060; 95059